=== PATIENT | male | born 1950 | race Caucasian/White ===

== ENCOUNTER 2017-06-22 09:35 | Emergency (ER) | payer OTHER | END 2017-06-22 11:41 | disposition home or self-care (01) | LOC: ER 09:35 | DX: H81.10 Benign paroxysmal vertigo, unspecified ear (principal); I10 Essential (primary) hypertension; J45.909 Unspecified asthma, uncomplicated; F10.99 Alcohol use, unspecified with unspecified alcohol-induced disorder; Z86.73 Personal history of transient ischemic attack (TIA), and cerebral infarction without residual deficits; Z95.5 Presence of coronary angioplasty implant and graft; Z96.643 Presence of artificial hip joint, bilateral; Z98.890 Other specified postprocedural states; Z88.5 Allergy status to narcotic agent ==

== ENCOUNTER 2017-10-03 05:18 | Day surgery (SDC) | payer OTHER ==
[~2017-10-03] VITALS: Ht 182.9 cm; Wt 79.4 kg
--- NOTE | ~2017-10-03 | O ---
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 PROCEDURE: Right knee arthroscopy with partial medial meniscectomy and debridement of chondromalacia, medial femoral condyle and patellofemoral articulation. SURGEON: Mitch Dueñas MD INDICATIONS: This slender, fit, active 66-year-old gentleman complains of progressive right knee pain, principally along the anterior and medial aspect. Clinical and radiographic findings are consistent with moderate degenerative chondromalacia and probably some degenerative tearing of the medial meniscus. He has tried conservative measures without clear benefit. Symptoms and findings are not so severe as to require total knee replacement, but symptoms are significant and troubling, therefore we have elected to go ahead with arthroscopic evaluation and debridement hoping we can achieve some symptom improvement and delay eventual knee replacement surgery. DESCRIPTION OF PROCEDURE: The patient was taken to the operating room where he was placed under general anesthesia. Prophylactic intravenous antibiotics were administered. The right knee and leg were meticulously prepped and draped. A thigh tourniquet inflated to 300 mmHg. An anterolateral puncture was created and the knee was inflated with normal saline. The arthroscope and shaver were introduced through parapatellar tendon approaches. The various compartments were sequentially visualized and documented with arthroscopic photography. The medial compartment does reveal moderate degenerative chondromalacia over most of weightbearing surface of the medial femoral condyle. This is grade 2 damage and very limited debridement was performed in this region. There were few areas of mild unstable delaminating cartilage, which were more aggressively debrided. The corresponding surface of the medial tibial plateau was in better shape with only minor fissuring and grooving. The medial meniscus did reveal degenerative tearing in the mid medial portion back to the posterior horn. This involved about the inner one-half of the meniscus. This was debrided with a [facility] [address] [place] [address] OPERATIVE REPORT Name: IGGYORA [id number] Admission: 10/03/17 Attend Phys: Mitch Dueñas MD Discharge: Date of : 46 Report #: [id number] small shaver back to a more smooth even outer margin, in general the extent of degenerative change of the medial compartment is moderate, certainly enough to cause symptoms, but not so severe as to generally require consideration of joint replacement. There was; however, much more significant full thickness cartilage loss along the anterior medial aspect of the distal femur, which articulated with the medial border of the patella at about mid flexion. There was exposed eburnated bone and some delamination around the margin. This was gently debrided where there was loose cartilage. The corresponding surface on the patella was much less severely involved with some fissuring and grooving along the medial facet, but in general, the cartilage is in rather good shape on the patella. The remainder of the trochlea region and extending out on to the lateral trochlea border was in better shape as well with only minor fissuring and grooving. I suspect this area of more severe damage at the anterior medial femoral condyle is the primary source of his discomfort, but the remainder of the patellofemoral articulation is not as severely involved and the patella seems stable. The lateral compartment reveals better cartilage on both the lateral femoral condyle and the lateral tibial plateau. The lateral meniscus appears to be intact and stable. The intercondylar notch reveals normal cruciate ligaments, which appeared to be functioning nicely. No other abnormalities were identified. The entire knee was copiously irrigated. All excess fluid was evacuated from the knee. The knee was injected with 80 mg of Depo-Medrol and 25 mL of 0.5% Marcaine with epinephrine. The puncture sites were closed with interrupted nylon suture. Sterile dressing was applied. The patient was awakened and returned to recovery room in good condition. By: [id number] Mitch Dueñas MD /nt
[~2017-10-03 05:18] MED LIST: ACETAMINOPHEN325 M1 PO; ADULT LOW DOSE81 MG PO; AMLODIPINE BESYL5 MG PO; ASPIR 8181 MG PO; BENADRYL25 MG PO; BREO ELLIPTA 21 EACH INH; CALCIUM WITH M1 EACH PO; COLACE100 MG PO; COUMADIN 2 MG TA2 M1 PO; FLORINEF ACETA0.1 MG PO; HYDROCODON-ACE1 EAC5 PO; HYDROCODONE-AP1 EAC6 PO; IBUPROFEN 200200 M1 PO; KETOCONAZOLE60 GM; LISINOPRIL40 MG PO; LOPRESSOR25 PO; LOVASTAT40 PO; MECLIZINE HCL25 MG PO; MIRALAX255 GM PO; NIZORAL120 ML; NORVASC5 MG PO; OMEGA-31000 M1 PO; OMEGA-31000 MG PO; PLAVIX 75 MG TA75 MG PO; PROAIR HFA8.5 GM INH; PROSCAR 5MG TABL5 MG PO; RANITIDINE 150150 M1 PO; TAMSULOSIN HCL0.4 M1 PO; TOPROL XL25 MG PO; TRAMADOL 50 MG50 MG PO; TURMERIC500 M2 PO
[2017-10-03 07:34] VITALS: BP 121/76
[2017-10-03 08:59] VITALS: BP 121/76
== END 2017-10-03 09:15 | disposition home or self-care (01) ==
LOC: TBA 05:18 → OR 05:18
DX: M23.221 Derangement of posterior horn of medial meniscus due to old tear or injury, right knee (principal); M94.261 Chondromalacia, right knee; I10 Essential (primary) hypertension; J45.909 Unspecified asthma, uncomplicated; E78.5 Hyperlipidemia, unspecified; K21.9 Gastro-esophageal reflux disease without esophagitis; H81.10 Benign paroxysmal vertigo, unspecified ear; Z86.73 Personal history of transient ischemic attack (TIA), and cerebral infarction without residual deficits; Z87.891 Personal history of nicotine dependence; Z96.643 Presence of artificial hip joint, bilateral; Z98.890 Other specified postprocedural states; Z88.6 Allergy status to analgesic agent; Z79.82 Long term (current) use of aspirin; Z79.899 Other long term (current) drug therapy; Z79.891 Long term (current) use of opiate analgesic
CPT/HCPCS: 50010; 50101; 50405; 51038; 54170; 56526; 62110; 62900

== ENCOUNTER 2018-01-29 05:29 | Inpatient (IN) | payer OTHER ==
[~2018-01-29] VITALS: Ht 185.4 cm; Wt 82.1 kg
--- NOTE | ~2018-01-29 | D ---
[facility] [place] [address] DISCHARGE SUMMARY Name: ORA PARKINSON Room #: 402-P [facility] IN M.R.#: [id number] Admission: 02/03/18 Attend Phys: Mitch Dueñas MD Discharge: 02/05/18 Date of : 46 Report #: [id number] THIS REPORT FOR: //name// CC: Shiloh Dueñas DATE OF SERVICE: 02/05/2018 FINAL DIAGNOSIS: End-stage degenerative arthritis, left knee. OPERATION PROCEDURE: Left total knee arthroplasty. HISTORY OF PRESENT ILLNESS: This slender, fit, 67-year-old gentleman presents with progressive left knee pain. He has had similar degenerative problems in other areas. His left knee symptoms are now severe and unresponsive to conservative medical measures. He has elected to go ahead with total knee arthroplasty. HOSPITAL COURSE: The patient was admitted and taken to the operating room on 02/03/2018. He underwent left total knee arthroplasty, which he tolerated well. Postoperatively, he made very rapid progress, advancing from IV analgesics to oral analgesics and advancing back to a regular diet. He made good progress with physical therapy and seems to be safe and functionally independent using a walker for ambulation. The wound appears to be healing nicely and the dressing is intact. His vital signs and lab studies have been stable. He has elected to go home on 02/05/2018, planning for gentle independent exercise at home and then possible outpatient therapy next week. DISCHARGE MEDICATIONS: Include lovastatin 40 mg daily, albuterol inhaler p.r.n., amlodipine 5 mg daily, Proscar 5 mg daily, ranitidine 150 mg daily, omega-3 fatty acids 1000 mg daily, calcium supplement one tablet daily, glucosamine 1000 mg daily, Xarelto 10 mg daily, hydrocodone 10/325 one q. 4-6 hours p.r.n. for pain. He will continue with gentle activity and exercise at home and plan for outpatient therapy when arrangements can be made. I have asked him to call me should any problems or questions. We will plan to see him back in my office for followup and suture removal in . <ELECTRONICALLY SIGNED> By: Mitch Dueñas MD 02/07/18 [id number] [id number] Mitch Dueñas MD /nt
--- NOTE | ~2018-01-29 | O ---
[facility] [place] [address] OPERATIVE REPORT Name: ORA PARKINSON Room #: 402-P [facility] IN M.R.#: [id number] Admission: 02/03/18 Attend Phys: Mitch Dueñas MD Discharge: Date of : 46 Report #: [id number] THIS REPORT FOR: //name// CC: Shiloh Dueñas DATE OF SERVICE: 02/03/2018 PREOPERATIVE DIAGNOSES: End-stage degenerative arthritis, left knee with varus malalignment. POSTOPERATIVE DIAGNOSES: End-stage degenerative arthritis, left knee with varus malalignment. PROCEDURE: Left total knee arthroplasty. SURGEON: Mitch Dueñas MD. INDICATIONS: This 67-year-old generally healthy gentleman has progressive degenerative arthritis in multiple areas. He now has progressive left knee pain with clinical and x-ray findings consistent with moderately severe degenerative arthritis. We discussed treatment options and elected to go ahead with total knee replacement. DESCRIPTION OF PROCEDURE: The patient was taken to the operating room where he was placed under general anesthesia. Prophylactic intravenous antibiotics were administered. The left knee and leg were meticulously prepped and draped. A thigh tourniquet was applied and inflated to 300 mmHg. An anterior longitudinal skin incision was made and carried through the medial retinaculum to expose the knee joint. Marked degenerative change in all 3 compartments, most severe in the medial compartment was noted. The Harris and Nephew knee system was utilized. Intramedullary guides were used on both the femur and the tibia. The femur was cut in 5 degrees of valgus and the tibia cut perpendicular to the long axis of the bone. The femur seemed best suited for a size 5 femoral component. The tibia also was best suited for a size 5 tibial component. Trial reduction was performed, and an 11 mm polyethylene insert resulted in satisfactory alignment, range of motion and stability. The patellar surface was resected, and a 38 mm patellar button fit nicely. Appropriate anchor holes were created. A trial reduction was performed with components in place, and this demonstrated good alignment, range of motion and stability. The knee was able to fully extend and flex beyond 130 degrees, and there seemed to be satisfactory stability throughout full arc of motion. The patella seemed to track nicely and appeared to be stable as well. The trial components were removed. The intramedullary canal was blocked with bone block on both the femoral and tibial sides. The surfaces were thoroughly [address] [address] OPERATIVE REPORT Name: ORA PARKINSON Room #: 402-P [facility] IN .R.#: [id number] Admission: 02/03/18 Attend Phys: Mitch Dueñas MD Discharge: Date of : 46 Report #: [id number] irrigated and dried. Methyl methacrylate cement was mixed and injected into the porous surface of the tibia. The size 5 Harris and Nephew tibial baseplate was then inserted, positioning this in appropriate alignment. It seated nicely and appeared to be secure, an #11 mm polyethylene insert using a cruciate retaining high flexion polyethylene liner was selected. This was snapped into place, and it seated nicely and appeared to be secure. A size 5 left femoral component was then impacted on to the distal femur in a press fit fashion. This seated nicely and appeared to be secure and stable. A 38 mm patellar button was cemented in place using appropriate anchor holes and cement. This was secured with a patellar clamp until the cement had hardened. All excess cement was removed from around its margin. Once the components were fully seated and the cement was firm, alignment, range of motion and stability were once again assessed and felt to be satisfactory. The patella seemed to track nicely and appeared to be stable. The tourniquet was then deflated after a total tourniquet time of 50 minutes. A single Hemovac was left in the wound exiting through a separate stab incision. The fascia was then closed with multiple #1 Vicryl sutures. The subcutaneous tissues were closed with 0 Monocryl. The skin was closed with skin juan. Sterile dressing was applied. The patient was awakened and returned to recovery room in good condition. <ELECTRONICALLY SIGNED> By: Mitch Dueñas MD 02/04/18 0814 [id number] Mitch Dueñas MD /nt
[~2018-01-29 05:29] MED LIST changes: +GLUCOSAMINE1000 MG PO
[2018-01-29 08:50] LABS: HEMATOCRIT 44.9 % (42.0-52.0); HEMOGLOBIN 15.4 gm/dL (14.0-18.0); MCH 32.3 pg (26.0-34.0); MCHC 34.3 g/dL (28.0-37.0); MCV 94.2 fL (80.0-100.0); RBC 4.77 mil/uL (4.50-6.00); RDW 12.7 % (10.5-14.5); URINE BILIRUBIN NEGATIVE (Negative); URINE BLOOD NEGATIVE (Negative); URINE CLARITY CLEAR; URINE COLOR YELLOW; URINE GLUCOSE-RANDOM* NEGATIVE (Negative); URINE KETONES NEGATIVE (Negative); URINE LEUKOCYTES-REFLEX NEGATIVE (Negative); URINE NITRITE-REFLEX NEGATIVE (Negative); URINE PROTEIN (DIPSTICK) NEGATIVE (Negative); URINE SPECIFIC GRAVITY >= 1.030 (1.005-1.035); URINE UROBILINOGEN 0.2 E.U./dl (0.2-1.0); WBC 6.6 thou/uL (4.0-11.0)
[2018-01-29 09:29] LABS: ALBUMIN 3.9 g/dL (3.4-5.0); CALCIUM 9.3 mg/dL (8.5-10.1); CREATININE 1.2 mg/dL (0.7-1.3); POTASSIUM 4.2 mmol/L (3.5-5.1)
[2018-02-03 10:16] VITALS: BP 133/80
[2018-02-03 16:10] VITALS: BP 129/83
[2018-02-03 16:40] VITALS: BP 137/80
[2018-02-03 17:45] VITALS: BP 129/83
[2018-02-03 20:00] VITALS: BP 122/72
[2018-02-04 04:00] VITALS: BP 109/63
[2018-02-04 06:36] LABS: HEMATOCRIT 34.4 % (42.0-52.0); HEMOGLOBIN 12.2 gm/dL (14.0-18.0); MCH 32.5 pg (26.0-34.0); MCHC 35.4 g/dL (28.0-37.0); MCV 91.9 fL (80.0-100.0); RBC 3.74 mil/uL (4.50-6.00); RDW 12.6 % (10.5-14.5); WBC 11.4 thou/uL (4.0-11.0)
[2018-02-04 08:13] VITALS: BP 116/55
[2018-02-04 11:34] LABS: CALCIUM 8.4 mg/dL (8.5-10.1); CREATININE 1.3 mg/dL (0.7-1.3); MAGNESIUM 1.9 mg/dL (1.8-2.4); POTASSIUM 4.6 mmol/L (3.5-5.1)
[2018-02-04 15:33] VITALS: BP 131/68
[2018-02-04 20:50] VITALS: BP 121/51
[2018-02-05 05:42] VITALS: BP 115/66
[2018-02-05 06:22] LABS: ABSOLUTE NEUTROPHILS 4.9 thou/uL (1.4-8.2); BASOPHILS 0.4 % (0.0-2.0); EOSINOPHILS 2.5 % (0.0-3.0); HEMOGLOBIN 10.9 gm/dL (14.0-18.0); MCHC 35.2 g/dL (28.0-37.0); MCV 93.8 fL (80.0-100.0); MONOCYTES 9.9 % (1.0-8.0); PLATELET COUNT 163 thou/uL (150-400); POLYS 66.2 % (36.0-66.0); RDW 12.6 % (10.5-14.5); WBC 7.4 thou/uL (4.0-11.0)
[2018-02-05 06:25] LABS: CALCIUM 8.3 mg/dL (8.5-10.1); CREATININE 1.4 mg/dL (0.7-1.3); MAGNESIUM 2.1 mg/dL (1.8-2.4)
[2018-02-05 09:51] VITALS: BP 95/65
[2018-02-05 13:36] VITALS: BP 95/65
== END 2018-02-05 15:46 | disposition home or self-care (01) | DRG 470 ==
LOC: TBA 05:29 → PRE 05:29 → TBA 02-03 05:26 → PRE 02-03 07:11 → 4N 02-03 16:03 → PRE 02-03 16:48 → ENTRNSPT 02-05 14:33 → EDTRNSPTSTS 02-05 14:38 → 4N 02-05 15:46
PROVIDERS: Nurse Practitioner; Orthopaedic Surgery
PROC: 3E0T3BZ Introduction of Anesthetic Agent into Peripheral Nerves and Plexi, Percutaneous Approach (ICD-10-PCS; principal; 2018-02-03)
PROC: 0SRD0J9 Replacement of Left Knee Joint with Synthetic Substitute, Cemented, Open Approach (ICD-10-PCS; principal; 2018-02-03)
DX: M17.12 Unilateral primary osteoarthritis, left knee (principal); I10 Essential (primary) hypertension; E78.5 Hyperlipidemia, unspecified; N40.0 Benign prostatic hyperplasia without lower urinary tract symptoms; K21.9 Gastro-esophageal reflux disease without esophagitis; G89.29 Other chronic pain; M54.9 Dorsalgia, unspecified; J45.909 Unspecified asthma, uncomplicated; Z96.643 Presence of artificial hip joint, bilateral; Z88.6 Allergy status to analgesic agent; Z79.82 Long term (current) use of aspirin; Z79.899 Other long term (current) drug therapy; Z87.891 Personal history of nicotine dependence
CPT/HCPCS: 10790; 50010; 50101; 50415; 50954; 51130; 51225; 51412; 51771; 53364; 56525; 62110; 62900; 64037; 65060; 70005